=== PATIENT | female | born 1995 | race Caucasian/White ===

== ENCOUNTER 2019-06-15 14:27 | Outpatient (NON) | payer SELFPAY | END 2019-06-15 14:28 | PROVIDERS: Visit Provider Nurse Practitioner Family | DX: Z12.4 Encounter for screening for malignant neoplasm of cervix (principal); Z13.89 Encounter for screening for other disorder | CPT/HCPCS: 87491; 87591; 87661; 88141; 88175; G0145 ==

== ENCOUNTER 2019-07-20 08:14 | Emergency (ER) | payer SELFPAY ==
[2019-07-20 09:00] VITALS: BP 120/75; PULSE 80; RESP 20; TEMP 36.6; O2SAT 99
--- NOTE | 2019-07-20 09:10 | ED.SKABFB ---
HPI - Skin/Abscess/Foreign Bdy General Chief complaint: Skin/Abscess/Foreign Body Stated complaint: possible ringworm Source: patient History of Present Illness HPI narrative: patient presents with history of small round lesions with a central sparing located on her abdomen with no fever chills they are mildly itchy with no drainage no nausea vomiting no abdominal pain no audible wheezing. complaint: rash Onset (ago): week(s) Tetanus up to date: unsure Severity: mild Related Data Home Medications Medication Instructions Recorded Confirmed multivitamin,[id number] 1 tablet PO DAILY 06/15/19 Allergies Allergy/AdvReac Type Severity Reaction Status Date / Time tramadol Allergy Intermediate Hives, Verified 06/15/19 12:56 itching Laundry Soap Allergy Intermediate Unknown Uncoded 06/15/19 12:56 Review of Systems Review of Systems: All systems reviewed & are unremarkable except as noted in HPI and below PMFSH Past Medical History Medical History Abrasion of cervix GERD (gastroesophageal reflux disease) Obesity, Class I, BMI 30-34.9 Surgical History Surgical History History of appendectomy History of eye surgery Lazy eye repair-left eye Social History Social History Smoking status: Current every day smoker Tobacco type: e-cigarettes Alcohol intake: current Substance use: current Substance use type: marijuana Additional living arrangements comments: with family 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 Gender identity (if verbalized by the patient): Female Spiritual care concerns: No Exam Const: General: no acute distress and alert Orientation/consciousness: patient oriented x3 HENMT: Head: normal to inspection Eyes: Conjunctivae: conjunctivae normal Pupils: Equal, round and reactive pupils present Neck: Neck: normal visual inspection Chest: Chest palpation & inspection: normal inspection of the chest Resp: Effort & Inspection: normal respiratory effort Auscultation: clear to auscultation bilaterally Cardio: Rate: regular rate : General: Yes no CVA tenderness Back/Spine/Pelvis: Back: no CVA tenderness Skin: General skin exam: normal color Other: Small brown lesions with central sparing located on abdomen and back Extrem: General: normal to inspection Psych: Mental Status: mental status grossly normal Critical Care Time Critical Care Time Critical Care Time: No Discharge Plan Discharge Clinical Impression: Tinea corporis Patient Disposition: Home, Self-Care Condition: Stable Instructions: Antibiotic Form, Tinea Corporis (ED) Additional Instructions: apply Selsun Blue as directed leave on for 15 minutes and then wash off apply daily x1 week. Prescriptions: New Selsun Blue 1 % shampoo 1 applic TOPICAL DAILY 7 Days RF: 0 No Action Complete Multivitamin Tablet 1 tablet PO DAILY RF: 0 Follow-up/Referrals: Collette Kwong NP [Primary Care Provider] -
== END 2019-07-20 09:22 | disposition home or self-care (01) ==
PROVIDERS: Emergency Provider Emergency Medicine; PCP Nurse Practitioner Family
DX: B35.4 Tinea corporis (principal)
CPT/HCPCS: 99283

== ENCOUNTER 2020-03-24 00:49 | Emergency (ER) | payer OTHER, SELFPAY ==
[2020-03-24 01:00] VITALS: BP 123/72; PULSE 108; RESP 20; TEMP 36.9; O2SAT 97
--- NOTE | 2020-03-24 01:09 | ED.GENADULT ---
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 Denies N/V/D but states her LMP was in january. Related Data Allergies Allergy/AdvReac Type Severity Reaction Status Date / Time tramadol Allergy Intermediate Hives, Verified 06/15/19 12:56 itching Laundry Soap Allergy Intermediate Unknown Uncoded 06/15/19 12:56 Review of Systems Constitutional: Constitutional: Reports no additional constitutional complaints Eyes: Eyes: Reports no additional eye complaints ENT: Reports system reviewed and no additional complaints, except as documented Cardiovascular: Cardiovascular: Reports no additional cardiovascular complaints Respiratory: Respiratory: Reports no additional respiratory complaints Gastrointestinal: Gastrointestinal: Reports abdominal pain, Denies heartburn, Denies diarrhea, Denies nausea and Denies vomiting Genitourinary: Genitourinary: Reports no additional female genitourinary complaints Musculoskeletal: Musculoskeletal: Reports no additional musculoskeletal complaints Integumentary/Breasts: Skin/Breast: Reports system reviewed and no additional complaints, except as docu Neurologic: Reports system reviewed and no additional complaints, except as documented Psychiatric: Psychiatric: Reports no additional psychiatric complaints Endocrine: Endocrine: Reports no additional endocrine complaints Hematologic/Lymphatic: Hematologic/Lymphatic: Reports no additional hematologic/lymphatic complaints Allergic/Immunologic: Allergic/Immunologic: Reports no additional allergic/immunologic complaints [facility] Past Medical History Medical History (Updated 03/24/20 @ 02:27 by Ulises Jaime MD) Abrasion of cervix GERD (gastroesophageal reflux disease) Obesity, Class I, BMI 30-34.9 Surgical History Surgical History History of appendectomy History of eye surgery Lazy eye repair-left eye Social History Social History Smoking status: Current every day smoker Tobacco type: e-cigarettes/vaping Alcohol intake: current Substance use: current Substance use type: marijuana Additional living arrangements comments: with family 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 Gender identity (if verbalized by the patient): Female Spiritual care concerns: No Exam Const: General: healthy appearing, no acute distress and alert Orientation/consciousness: patient oriented x3 HENMT: Head: normal to inspection Eyes: Conjunctivae: conjunctivae normal Neck: Neck: normal visual inspection and no lymphadenopathy Chest: Chest palpation & inspection: normal inspection of the chest Resp: Effort & Inspection: normal respiratory effort Cardio: Rate: regular rate Rhythm: regular rhythm GI: Inspection: distended GI Palp: Yes Soft to palpation, No Tenderness to palpation present (GI), No Guarding due to palpation present (GI), No Rigid due to palpation, No Hernia present, No Palpable mass present and No Rebound tenderness present Percussion: Yes normal to percussion Auscultation: normal bowel sounds : General: Yes no CVA tenderness Back/Spine/Pelvis: Back: no CVA tenderness Skin: General skin exam: normal color Neuro: General: patient oriented x3, moves all extremities, no meningeal signs, no focal motor deficits and CN's II-XI intact bilaterally Cranial nerves: Yes Nystagmus not present Speech: normal speech Extrem: General: normal to inspection Psych: Mental Status: mental status grossly normal Course Course Emergency Course: W/U reviewd w/ patient and normal. [place] diet and d/c home on [facility]. Medical Decision Making Medical Records Medical records reviewed: Yes I reviewed the patient's medical records. Lab Data Lab results reviewed: Yes I reviewed the
[2020-03-24 01:22] LABS: Add Urine Microscopic? YES; Appearance Urine Clear (Clear); Bilirubin Urine Negative (Negative); Blood Urine Negative (Negative); Color Urine Yellow (Yellow); Glucose Urine UA Negative (Negative); Ketones Urine 1+ (Negative); Leukocyte Esterase Ur Negative LEU/UL (Negative); Nitrate Urine Negative (Negative); Protein Urine Negative (Negative); Specific Grav Ur 1.025 (1.010-1.020); Urobilinogen Urine 0.2 mg/dL (0.2-1.0)
[2020-03-24 01:24] LABS: Basophils Absolute Auto 0.04 K/mm3 (0.00-0.10); Basophils Percent Auto 0.5 % (0.0-1.0); Eosinophils Absolute Auto 0.05 K/mm3 (0.02-0.50); Eosinophils Percent Auto 0.6 % (1.0-6.0); Hematocrit 38.5 % (35.0-49.0); Hemoglobin 12.5 g/dL (12.0-15.0); Immature Granulocyte Absolute 0.04 K/mm3 (0.00-0.00); Immature Granulocyte Percent A 0.5 % (0.0-0.0); Lymphocytes Absolute Auto 2.86 K/mm3 (1.10-4.50); Mean Corpuscular HGB Conc 32.5 g/dL (32.0-36.0); Mean Corpuscular Hemoglobin 29.2 pg (27.0-31.0); Mean Platelet Volume 11.2 fl (9.2-11.8); Monocytes Absolute Auto 0.72 K/mm3 (0.10-0.90); Monocytes Percent Auto 8.6 % (2.0-11.0); Neutrophils Absolute Auto 4.7 K/mm3 (1.7-7.2); Neutrophils Percent Auto 55.8 % (50.0-70.0); Platelet Count Result 252 K/mm3 (150-420); Red Blood Count 4.28 M/mm3 (4.20-5.40); Red Cell Distribution Width 12.3 % (11.6-14.4); White Blood Count 8.4 K/mm3 (4.8-10.8)
[2020-03-24] MEDS: SODIUM CHLORIDE 0.9% IV 1,000 ML 999 ML IV CONT (01:26)
[2020-03-24 01:27] LABS: Pregnancy On Board Control Positive; Urine Pregnancy Test Negative
[2020-03-24 01:32] LABS: RBC Urine 0-2 /hpf (0-2); WBC Urine 0-3 /hpf (0-3)
[2020-03-24 01:33] LABS: Bacteria Urine 2+ /hpf; Squamous Epithelial Cell Urine Few /hpf (Few)
[2020-03-24 01:37] LABS: Alanine Aminotransferase 20 U/L (14-59); Albumin Level 3.9 g/dL (3.4-5.0); Alkaline Phosphatase 49 U/L (46-116); Anion Gap 13 mmol/L (8-16); Aspartate Amino Transferase 13 U/L (15-37); Bilirubin,Total 0.5 mg/dL (0.00-1.00); Blood Urea Nitrogen 14 mg/dL (7-18); Calcium 8.7 mg/dL (8.5-10.1); Carbon Dioxide 25 mmol/L (21-32); Chloride 103 mmol/L (98-108); Estimated CRCL calculation 97 ml/min; Estimated Glomerular Filt Rate > 60; Glucose 93 mg/dL (70-99); INR 1.2; Lipase 75 U/L (73-393); Osmolality Calculated 292 mOsm/kg (285-295); Potassium 3.3 mmol/L (3.5-5.1); Sodium 141 mmol/L (136-145); Total Protein 7.3 g/dL (6.4-8.2)
[2020-03-24 02:15] LABS: Beta HCG Quantitative < 1.00 mIU/mL (0-6)
[2020-03-24 02:25] VITALS: BP 111/60; PULSE 83; RESP 18; TEMP 36.6; O2SAT 98
== END 2020-03-24 02:32 | disposition home or self-care (01) ==
PROVIDERS: Emergency Provider Family Medicine; PCP Nurse Practitioner Family
DX: K52.9 Noninfective gastroenteritis and colitis, unspecified (principal)
CPT/HCPCS: 36415; 80053; 81001; 81025; 83690; 84702; 85025; 85610; 85730; 96360; 99283; J7030

== ENCOUNTER 2020-07-28 12:41 | Outpatient (CLI) | payer OTHER, SELFPAY ==
[2020-07-28 15:06] LABS: SARS-CoV-2 Ag Negative (Negative)
== END 2020-07-28 12:42 | disposition home or self-care (01) ==
LOC: CHSLAB 12:45
PROVIDERS: PCP Nurse Practitioner Family; Visit Provider Nurse Practitioner Family
DX: R09.81 Nasal congestion (principal); Z20.822 Contact with and (suspected) exposure to COVID-19
CPT/HCPCS: 87426; C9803

== ENCOUNTER 2020-08-12 11:07 | Outpatient (CLI) | payer OTHER, SELFPAY ==
[2020-08-12 11:38] LABS: SARS-CoV-2 Ag Negative (Negative)
== END 2020-08-12 11:08 | disposition home or self-care (01) ==
LOC: CHSLAB 11:10
PROVIDERS: PCP Nurse Practitioner Family; Visit Provider Nurse Practitioner Family
DX: Z20.822 Contact with and (suspected) exposure to COVID-19 (principal)
CPT/HCPCS: 87426; C9803

== ENCOUNTER 2021-07-14 09:42 | Outpatient (CLI) | payer OTHER, SELFPAY ==
--- NOTE | ~2021-07-14 | US_ITS ---
EXAMINATION: US OB <= 14 weeks fetus DATE: 07/14/2021 10:27 INDICATION: First trimester dating TECHNIQUE: Real-time pelvic transabdominal and transvaginal ultrasound was performed. COMPARISON: None. FINDINGS: The uterus measures 10.5 x 8.0 x 8.5 cm. There is an intrauterine gestational sac. A yolk sac is identified. heart motion is identified measuring 137 beats per minute (bpm) by M-mode Do ppler. The crown rump length measures 10 mm , which correlates with an estimated gestational ag e of 6 weeks and 6 day(s) (+/-) 3 day(s). The right ovary measures 2.6 x 1.3 x 1.1 cm. The left ovary measures 2.7 x 1.7 x 1.7 cm. There is nor mal vascular flow in the ovaries. There is no free fluid in the pelvis. IMPRESSION: 1. Live intrauterine with an estimated gestational age of 6 weeks and 6 day(s) (+/-) 3 day( s) and an estimated delivery date of 03/03/2022. Reviewed, dictated and finalized at location A. ESS COACH IMPRESSION: 1. Live intrauterine with an estimated gestational age of 6 weeks and 6 day(s) (+/-) 3 day(s) and an estimated delivery date of 03/03/2022.
== END 2021-07-14 09:43 | disposition home or self-care (01) ==
LOC: CHSIMG 09:44
PROVIDERS: PCP Nurse Practitioner Family; Visit Provider Nurse Practitioner Family
DX: N83.209 Unspecified ovarian cyst, unspecified side (principal); N91.2 Amenorrhea, unspecified
CPT/HCPCS: 36415; 76801; 84702

== ENCOUNTER 2021-07-17 14:36 | Outpatient (CLI) | payer OTHER, SELFPAY ==
[2021-07-17 16:00] LABS: SARS-CoV-2 RNA PCR Negative (Negative)
== END 2021-07-17 14:37 | disposition home or self-care (01) ==
PROVIDERS: PCP Nurse Practitioner Family; Visit Provider Nurse Practitioner Family
DX: R11.0 Nausea (principal); Z20.822 Contact with and (suspected) exposure to COVID-19
CPT/HCPCS: C9803; U0003; U0005

== ENCOUNTER 2021-08-20 14:07 | Emergency (ER) | payer OTHER, SELFPAY ==
[2021-08-20 14:48] VITALS: BP 113/59; PULSE 55; RESP 20; TEMP 37.1; O2SAT 99
[2021-08-20 15:02] LABS: Basophils Absolute Auto 0.02 K/mm3 (0.00-0.10); Basophils Percent Auto 0.3 % (0.0-1.0); Eosinophils Absolute Auto 0.04 K/mm3 (0.02-0.50); Eosinophils Percent Auto 0.6 % (1.0-6.0); Hematocrit 41.1 % (35.0-49.0); Hemoglobin 13.4 g/dL (12.0-15.0); Immature Granulocyte Absolute 0.05 K/mm3 (0.00-0.00); Immature Granulocyte Percent A 0.7 % (0.0-0.0); Lymphocytes Absolute Auto 1.45 K/mm3 (1.10-4.50); Lymphocytes Percent Auto 20.7 % (18.0-42.0); Mean Corpuscular HGB Conc 32.6 g/dL (32.0-36.0); Mean Corpuscular Hemoglobin 29.4 pg (27.0-31.0); Mean Corpuscular Volume 90.1 fL (78.0-102.0); Monocytes Absolute Auto 0.48 K/mm3 (0.10-0.90); Monocytes Percent Auto 6.9 % (2.0-11.0); Neutrophils Percent Auto 70.8 % (50.0-70.0); Platelet Count Result 219 K/mm3 (150-420); Red Blood Count 4.56 M/mm3 (4.20-5.40); Red Cell Distribution Width 12.5 % (11.6-14.4)
[2021-08-20] MEDS: SODIUM CHLORIDE 0.9% IV 1,000 ML 999 ML IV CONT (15:06)
[2021-08-20] MEDS: ONDANSETRON INJ 4 MG/2 ML VIAL IV PUSH (15:10)
[2021-08-20] MEDS: PANTOPRAZOLE SODIUM IV 40 MG VIAL IV PUSH (15:11)
[2021-08-20 15:19] LABS: Alanine Aminotransferase 35 U/L (14-59); Albumin Level 3.4 g/dL (3.4-5.0); Alkaline Phosphatase 40 U/L (46-116); Anion Gap 9 mmol/L (8-16); Aspartate Amino Transferase 24 U/L (15-37); Bilirubin,Total 0.3 mg/dL (0.00-1.00); Blood Urea Nitrogen 10 mg/dL (7-18); Calcium 8.7 mg/dL (8.5-10.1); Carbon Dioxide 25 mmol/L (21-32); Chloride 101 mmol/L (98-108); Estimated CRCL calculation 133 ml/min; Estimated Glomerular Filt Rate > 60; Glucose 81 mg/dL (70-99); Lipase 54 U/L (73-393); Osmolality Calculated 278 mOsm/kg (285-295); Potassium 3.7 mmol/L (3.5-5.1); Sodium 135 mmol/L (136-145); Total Protein 7.2 g/dL (6.4-8.2)
--- NOTE | 2021-08-20 15:56 | ED.NAVMDI ---
HPI - Nausea/Vomiting/Diarrhea General Chief complaint: Nausea/Vomiting/Diarrhea Stated complaint: Stomache Bug/ Vomiting/Diarrhea Time Seen by Provider: 08/20/21 14:09 Source: patient and RN notes reviewed Mode of arrival: ambulatory Limitations: no limitations History of Present Illness MD elicited complaint: nausea and vomiting Pertinent past history: other (Pt is .) Onset (ago): day(s) (1) Description of vomiting: watery Associated nausea: Yes Associated abdominal pain: No Location of pain: none Severity: mild Pain scale (0-10): 0 Exacerbating factors: none Relieving factors: none Associated symptoms: nausea/vomiting Treatment prior to arrival: none Related Data Home Medications Medication Instructions Recorded Confirmed vitamins-iron fumarate 65 1 tablet PO DAILY 07/27/21 08/20/21 mg iron-folic acid 1 mg tablet Allergies Allergy/AdvReac Type Severity Reaction Status Date / Time tramadol Allergy Intermediate Hives, Verified 09/02/21 14:37 itching Laundry Soap Allergy Intermediate Unknown Uncoded 09/02/21 14:37 Review of Systems Review of Systems: All systems reviewed & are unremarkable except as noted in HPI and below PMFSH Past Medical History Medical History Abrasion of cervix Encounter for screening examination for sexually transmitted disease Gastroenteritis GERD (gastroesophageal reflux disease) Obesity, Class I, BMI 30-34.9 Suppression of menstruation Surgical History Surgical History History of appendectomy History of eye surgery Lazy eye repair-left eye Social History Social History Smoking status: Current every day smoker Tobacco type: e-cigarettes/vaping Alcohol intake: former Alcohol use details: social Substance use: current Substance use type: marijuana Other substance usage details: a pinch here and there Additional living arrangements comments: with family 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 Gender identity (if verbalized by the patient): Female Sexual Orientation (if Verbalized by the Patient): Straight or Heterosexual Spiritual care concerns: No Exam Const: General: no acute distress and alert Nutritional Appearance: well nourished Orientation/consciousness: patient oriented x3 Limitations: no limitations HENMT: Head: normal to inspection Ears: external ears normal, TM's normal bilaterally and EAC's normal General nose exam: Normal external nose present and Normal nares present Face and sinus: sinuses nontender Mouth: Yes moist mucous membranes Throat: posterior oropharynx normal Eyes: Conjunctivae: conjunctivae normal Cornea: corneas normal Pupils: Equal, round and reactive pupils present EOM: EOMs intact bilaterally Neck: Neck: normal visual inspection and no lymphadenopathy Chest: Chest palpation & inspection: normal inspection of the chest Resp: Effort & Inspection: normal respiratory effort Auscultation: clear to auscultation bilaterally Cardio: Rate: regular rate Rhythm: regular rhythm GI: GI Palp: Yes Soft to palpation and No Tenderness to palpation present (GI) Auscultation: normal bowel sounds : General: Yes bladder normal to palpation and Yes no CVA tenderness Back/Spine/Pelvis: Back: no CVA tenderness Skin: General skin exam: normal color Neuro: General: patient oriented x3, moves all extremities, no meningeal signs, no focal motor deficits and CN's II-XI intact bilaterally Extrem: General: normal to inspection and no pedal edema Psych: Appearance: grossly normal and well kempt Mental Status: mental status grossly normal Affect: normal affect Attitude: cooperative Thought content: Yes Normal thought content present Course Course Emergency Course: Pt was stable in the ED. no acute GI loss. Ree
[2021-08-20 16:16] LABS: Add Urine Microscopic? YES; Appearance Urine Clear (Clear); Bilirubin Urine Negative (Negative); Blood Urine Negative (Negative); Color Urine Yellow (Yellow); Glucose Urine UA Negative (Negative); Ketones Urine 3+ (Negative); Leukocyte Esterase Ur Trace LEU/UL (Negative); Nitrate Urine Negative (Negative); Protein Urine Negative (Negative); Specific Grav Ur 1.025 (1.010-1.020); Urobilinogen Urine 0.2 mg/dL (0.2-1.0)
[2021-08-20 16:23] LABS: Bacteria Urine 1+ /hpf; Mucus Urine Few /lpf; RBC Urine None seen /hpf (0-2); Squamous Epithelial Cell Urine Few /hpf (Few); WBC Urine 0-3 /hpf (0-3)
[2021-08-20 16:57] VITALS: BP 113/83; PULSE 61; RESP 20; TEMP 36.8; O2SAT 100
== END 2021-08-20 16:45 | disposition home or self-care (01) ==
PROVIDERS: Emergency Provider Emergency Medicine; PCP Nurse Practitioner Family
DX: K52.9 Noninfective gastroenteritis and colitis, unspecified (principal); Z34.92 Encounter for supervision of normal pregnancy, unspecified, second trimester
CPT/HCPCS: 36415; 80053; 81001; 83690; 85025; 96361; 96374; 96375; 99284; C9113; J2405; J7030

== ENCOUNTER 2021-09-02 11:40 | Outpatient (CLI) | payer OTHER, SELFPAY ==
[2021-09-02 13:06] LABS: Basophils Percent Auto 0.5 % (0.2-1.2); Eosinophils Percent Auto 0.6 % (0-4.4); Hematocrit 36.3 % (37.0-47.0); Hemoglobin 11.9 g/dL (12.0-15.0); Immature Granulocyte Absolute 0.02 K/mm3 (0.00-0.031); Immature Granulocyte Percent A 0.3 % (0-0.5); Lymphocytes Absolute Auto 1.46 K/mm3 (0.9-3.2); Lymphocytes Percent Auto 22.6 % (18.3-44.2); Mean Corpuscular HGB Conc 32.8 g/dl (32-36); Mean Corpuscular Hemoglobin 29.7 pg (26-34); Mean Corpuscular Volume 90.5 fl (80-100); Mean Platelet Volume 11.4 fl (7.4-10.4); Monocytes Absolute Auto 0.5 K/mm3 (0.1-0.6); Monocytes Percent Auto 7.3 % (2.6-8.5); Neutrophils Absolute Auto 4.5 K/mm3 (1.3-6.7); Neutrophils Percent Auto 68.7 % (45.5-73.1); Platelet Count Result 198 k/mm3 (150-375); Red Blood Count 4.01 M/mm3 (4.2-5.4); Red Cell Distribution Width 12.7 % (11.5-14.5); White Blood Count 6.5 K/mm3 (4.5-10.0)
[2021-09-02 13:14] LABS: Glucose 1 Hour PP 50gm Dose 119 mg/dL
[2021-09-02 13:53] LABS: Hepatitis B Surface Antigen Negative (Negative); Rubella IgG Antibody 7.8 IU/ML
[2021-09-02 13:56] LABS: HIV 1/2 Ab P24 Ag Result Negative (Negative)
[2021-09-03 09:35] LABS: Rapid Plasma Reagin Non-Reactive (NonReactive)
== END 2021-09-02 11:41 | disposition home or self-care (01) ==
LOC: ANHLAB 11:42
PROVIDERS: PCP Nurse Practitioner Family; Visit Provider Obstetrics & Gynecology
DX: N94.89 Other specified conditions associated with female genital organs and menstrual cycle (principal)
CPT/HCPCS: 36415; 82947; 84702; 85025; 86592; 86644; 86703; 86747; 86762; 86787; 86850; 86900; 86901; 87086; 87088; 87340; G0432

== ENCOUNTER 2021-10-02 10:19 | Outpatient (CLI) | payer OTHER, SELFPAY ==
--- NOTE | ~2021-10-02 | US_ITS ---
EXAMINATION: US OB /maternal detail DATE: 10/02/2021 11:10 INDICATION: Second trimester anatomic survey TECHNIQUE: Real-time ultrasound of the pelvis was performed. COMPARISON: 07/14/2021 FINDINGS: There is a single living fetus in transverse lie. The placenta is anterior and 4.5 cm from the internet specialist al cervical os. heart rate is 139 beats per minute (bpm). cardiac activity and mov ement are noted. The amniotic fluid index is subjectively normal. The following anatomy was identified as normal: 4 chamber heart 3 vessel cord cord insertion kidneys urinary bladder stomach spine diaphragm ventricles cisterna magna cerebellum The following biometric data were obtained: Biparietal diameter (BPD): 4.0 cm; head circumference (HC): 15.8 cm; abdominal circumference (AC): 13 .5 cm; femur length (FL): 2.8 cm. These measurements are concordant. Estimated weight is 255 g +/- 38 g, which correlates with the 48th percentile when 02/28/2022 i s used as estimated date of delivery. As single measurements, these parameters are each equal to the following estimated gestational ages w ith ranges of +/- 2 standard deviations: BPD: 18 weeks 2 days +/- 1 weeks 5 days. HC: 18 weeks 5 days +/- 1 weeks 3 days. AC: 19 weeks 0 days +/- 2 weeks 0 days. FL: 18 weeks 4 days +/- 1 weeks 6 days. estimated gestational age based solely on measurements from this exam is 18 weeks 5 days +/- 1 weeks 2 days. IMPRESSION: 1. Single living fetus in transverse lie. 2. Estimated weight is 255 g +/- 38 g, which correlates with the 48th percentile when 2 is used as estimated date of delivery. Reviewed, dictated and finalized at location A. IMPRESSION: 1. Single living fetus in transverse lie. 2. Estimated weight is 255 g +/- 38 g, which correlates with the 48th per centile when 02/28/2022 is used as estimated date of delivery.
== END 2021-10-02 10:20 | disposition home or self-care (01) ==
LOC: CHSIMG 10:21
PROVIDERS: PCP Nurse Practitioner Family; Visit Provider Obstetrics & Gynecology
DX: Z34.92 Encounter for supervision of normal pregnancy, unspecified, second trimester (principal)
CPT/HCPCS: 76805

== ENCOUNTER 2021-11-07 20:35 | Emergency (ER) | payer OTHER, SELFPAY ==
--- NOTE | 2021-11-07 20:58 | ED.SYNCOPE ---
HPI - Syncope General Chief Complaint: Fall Stated Complaint: blacked out, hit back of head Time Seen by Provider: 11/07/21 20:59 History of Present Illness HPI narrative: 26-year-old female patient 2 para 1 22-23 weeks along in her is in the ER with complaints of having had a near syncopal episode while outdoors attending a carnival today. Patient states that she was out in the heat and had not had much to drink. She was standing in front of a stand and felt lightheaded and had a blackout spell. The patient states that she did fall to the ground and landed on the grass hitting the back of her head. Patient states that that woke her up. Patient states that she was out for less than 5 minutes. EMS was at the scene and did encourage her to drink water and checked her out and the time. The incident apparently took place around 7:00 p.m.. Since then she has had water to drink and food to eat.. There was no associated nausea or vomiting. She denies any associated headache. She denies any chest pain. Patient states that she did not drink enough fluids today. Her thus far has been uneventful with the exception of hyperemesis but lately she has not needed any Zofran. She is currently on vitamins. Related Data Home Medications Medication Instructions Recorded Confirmed vitamins-iron fumarate 65 1 tablet PO DAILY 07/27/21 11/07/21 mg iron-folic acid 1 mg tablet Allergies Allergy/AdvReac Type Severity Reaction Status Date / Time tramadol Allergy Intermediate Hives, Verified 11/07/21 20:57 itching Laundry Soap Allergy Intermediate Unknown Uncoded 10/26/21 07:53 Review of Systems Review of Systems: All systems reviewed & are unremarkable except as noted in HPI and below Constitutional: Constitutional: Reports no additional constitutional complaints Eyes: Eyes: Reports no additional eye complaints ENT: Reports system reviewed and no additional complaints, except as documented Cardiovascular: Cardiovascular: Reports no additional cardiovascular complaints Respiratory: Respiratory: Reports no additional respiratory complaints Gastrointestinal: Gastrointestinal: Reports no additional gastrointestinal complaints Genitourinary: Genitourinary: Reports no additional female genitourinary complaints Musculoskeletal: Musculoskeletal: Reports no additional musculoskeletal complaints Integumentary/Breasts: Skin/Breast: Reports system reviewed and no additional complaints, except as docu Neurologic: Reports system reviewed and no additional complaints, except as documented Psychiatric: Psychiatric: Reports no additional psychiatric complaints Endocrine: Endocrine: Reports no additional endocrine complaints Hematologic/Lymphatic: Hematologic/Lymphatic: Reports no additional hematologic/lymphatic complaints Allergic/Immunologic: Allergic/Immunologic: Reports no additional allergic/immunologic complaints PMFSH Past Medical History Medical History Abrasion of cervix Amenorrhea Amenorrhea Encounter for pre-employment examination Encounter for screening examination for sexually transmitted disease Exposure to COVID-19 virus Gastroenteritis GERD (gastroesophageal reflux disease) Obesity, Class I, BMI 30-34.9 Ovarian cyst Skin irritation Skin rash Suppression of menstruation Vomiting and diarrhea Surgical History Surgical History History of appendectomy History of eye surgery Lazy eye repair-left eye Social History Social History Smoking status: Current every day smoker Tobacco type: e-cigarettes/vaping Alcohol intake: former Alcohol use details: social Substance use: current Substance use type: marijuana Other substance usage details: a pinch here and there Additional living arrangements comments: [facility]
--- NOTE | 2021-11-07 21:12 | ECG_ITS ---
Measurements Intervals [place] Rate: 92 P: 50 IL: 170 QRS: 10 QRSD: 95 T: 46 QT: 351 QTc: 434 Interpretive Statements SINUS RHYTHM WITHIN NORMAL LIMITS NO PREVIOUS ECG AVAILABLE FOR COMPARISON Electronically Signed On 11-08-2021 7:22:56 CDT by Roverto Bonner M.D.
[2021-11-07 21:46] VITALS: BP 118/67; PULSE 87; RESP 16; O2SAT 99
[2021-11-07 21:47] VITALS: BP 114/71; PULSE 98; RESP 17; TEMP 37; O2SAT 98
[2021-11-07 22:23] VITALS: BP 144/74; PULSE 102; RESP 19; O2SAT 97
[2021-11-07 22:24] LABS: Basophils Absolute Auto 0.04 K/mm3 (0.00-0.10); Basophils Percent Auto 0.3 % (0.0-1.0); Eosinophils Absolute Auto 0.02 K/mm3 (0.02-0.50); Eosinophils Percent Auto 0.2 % (1.0-6.0); Hematocrit 34.7 % (35.0-49.0); Hemoglobin 11.6 g/dL (12.0-15.0); Immature Granulocyte Percent A 1.7 % (0.0-0.0); Lymphocytes Absolute Auto 1.68 K/mm3 (1.10-4.50); Lymphocytes Percent Auto 13.9 % (18.0-42.0); Mean Corpuscular HGB Conc 33.4 g/dL (32.0-36.0); Mean Corpuscular Hemoglobin 30.9 pg (27.0-31.0); Mean Corpuscular Volume 92.5 fL (78.0-102.0); Mean Platelet Volume 11.1 fl (9.2-11.8); Monocytes Absolute Auto 0.84 K/mm3 (0.10-0.90); Monocytes Percent Auto 6.9 % (2.0-11.0); Neutrophils Absolute Auto 9.3 K/mm3 (1.7-7.2); Platelet Count Result 192 K/mm3 (150-420); Red Blood Count 3.75 M/mm3 (4.20-5.40); White Blood Count 12.1 K/mm3 (4.8-10.8)
[2021-11-07 22:25] LABS: Add Urine Microscopic? NO; Appearance Urine Clear (Clear); Bilirubin Urine Negative (Negative); Blood Urine Negative (Negative); Color Urine Yellow (Yellow); Glucose Urine UA Negative (Negative); Ketones Urine Negative (Negative); Leukocyte Esterase Ur Negative (Negative); Nitrate Urine Negative (Negative); Protein Urine Negative (Negative); Specific Grav Ur 1.015 (1.010-1.020); Urobilinogen Urine 0.2 mg/dL (0.2-1.0)
[2021-11-07 22:31] VITALS: BP 109/69; PULSE 100; RESP 18; O2SAT 99
--- NOTE | 2021-11-07 22:33 | PC.NURSE ---
Addendum entered by Santy Lew RN 11/07/21 22:34: HIV testing form for mother completed and placed in pt chart Original Note: HIV testing form completed and placed in pt chart
[2021-11-07 22:52] VITALS: BP 124/97; PULSE 86; RESP 17; TEMP 36.5; O2SAT 99
[2021-11-07 23:11] LABS: Alanine Aminotransferase 22 U/L (14-59); Albumin Level 2.6 g/dL (3.4-5.0); Alkaline Phosphatase 59 U/L (46-116); Anion Gap 6 mmol/L (8-16); Aspartate Amino Transferase 19 U/L (15-37); Bilirubin,Total 0.2 mg/dL (0.00-1.00); Blood Urea Nitrogen 8 mg/dL (7-18); Calcium 9.3 mg/dL (8.5-10.1); Carbon Dioxide 26 mmol/L (21-32); Chloride 102 mmol/L (98-108); Estimated CRCL calculation 140 ml/min; Estimated Glomerular Filt Rate > 60; Glucose 77 mg/dL (70-99); Magnesium 1.8 mg/dL (1.8-2.4); Osmolality Calculated 275 mOsm/kg (285-295); Potassium 3.7 mmol/L (3.5-5.1); Sodium 134 mmol/L (136-145); Total Protein 6.7 g/dL (6.4-8.2)
[2021-11-07 23:12] LABS: Troponin I < 4.0 ng/L (0.00-60.4)
== END 2021-11-07 22:55 | disposition home or self-care (01) ==
PROVIDERS: Emergency Provider Emergency Medicine; PCP Nurse Practitioner Family
DX: R42 Dizziness and giddiness (principal); Z33.1 Pregnant state, incidental
CPT/HCPCS: 36415; 80053; 81003; 83735; 84484; 85025; 93005; 99284

== ENCOUNTER 2021-12-07 11:09 | Outpatient (CLI) | payer OTHER, SELFPAY ==
[2021-12-07 12:30] LABS: Basophils Absolute Auto 0.07 K/mm3 (0.00-0.10); Basophils Percent Auto 0.6 % (0.0-1.0); Eosinophils Absolute Auto 0.03 K/mm3 (0.02-0.50); Eosinophils Percent Auto 0.3 % (1.0-6.0); Hematocrit 34.7 % (35.0-49.0); Hemoglobin 11.5 g/dL (12.0-15.0); Immature Granulocyte Absolute 0.24 K/mm3 (0.00-0.00); Immature Granulocyte Percent A 2.1 % (0.0-0.0); Lymphocytes Absolute Auto 1.86 K/mm3 (1.10-4.50); Lymphocytes Percent Auto 16.3 % (18.0-42.0); Mean Corpuscular HGB Conc 33.1 g/dL (32.0-36.0); Mean Corpuscular Hemoglobin 30.7 pg (27.0-31.0); Mean Corpuscular Volume 92.8 fL (78.0-102.0); Mean Platelet Volume 11.8 fl (9.2-11.8); Monocytes Absolute Auto 0.69 K/mm3 (0.10-0.90); Neutrophils Absolute Auto 8.5 K/mm3 (1.7-7.2); Neutrophils Percent Auto 74.7 % (50.0-70.0); Platelet Count Result 197 K/mm3 (150-420); Red Blood Count 3.74 M/mm3 (4.20-5.40); Red Cell Distribution Width 12.3 % (11.6-14.4); White Blood Count 11.4 K/mm3 (4.8-10.8)
[2021-12-07 13:04] LABS: Glucose 1 Hour PP 50gm Dose 114 mg/dL (70-130)
[2021-12-07 13:36] LABS: HIV 1 P24 AG Negative (Negative); HIV 1/2 AB Negative (Negative)
== END 2021-12-07 11:10 | disposition home or self-care (01) ==
LOC: CHSLAB 11:11
PROVIDERS: PCP Nurse Practitioner Family; Visit Provider Obstetrics & Gynecology
DX: Z34.92 Encounter for supervision of normal pregnancy, unspecified, second trimester (principal)
CPT/HCPCS: 36415; 82947; 85025; 86703

== ENCOUNTER 2022-01-30 20:35 | Emergency (ER) | payer OTHER, SELFPAY ==
--- NOTE | 2022-01-30 20:43 | ED.FALL ---
HPI - Fall General Chief Complaint: Fall Stated Complaint: 36 wks and fell today Time Seen by Provider: 01/30/22 20:40 Source: patient Mode of arrival: ambulatory History of Present Illness HPI Narrative: 26-year-old female, 38 fell at work. She slipped on a greasy substance and fell on her left knee and subsequently on her buttock. No loss of consciousness. No abrasions /lacerations noted. No head injury. No neck or back pain. Subsequently the patient was able to walk and bear weight without any difficulty. No vaginal discharge. The patient denied any pain. MD complaint: fall Onset (ago): hour(s) ( 1-1/2 hour ago) Fall from: standing Fall witnessed: yes, by bystander Place fall occurred: work Loss of consciousness: none Prolonged down time: no Symptoms prior to fall: none Context: tripped/slipped Location of injury - extremities: Left: knee Related Data Home Medications Medication Instructions Recorded Confirmed vitamins-iron fumarate 65 1 tablet PO DAILY 07/27/21 01/20/22 mg iron-folic acid 1 mg tablet Allergies Allergy/AdvReac Type Severity Reaction Status Date / Time tramadol Allergy Intermediate Hives, Verified 01/20/22 14:25 itching Laundry Soap Allergy Intermediate Unknown Uncoded 01/20/22 14:25 Review of Systems Review of Systems: All systems reviewed & are unremarkable except as noted in HPI and below Constitutional: Constitutional: Reports as per HPI and Reports no additional constitutional complaints Eyes: Eyes: Reports as per HPI and Reports no additional eye complaints ENT: Reports system reviewed and no additional complaints, except as documented and Reports as per HPI Cardiovascular: Cardiovascular: Reports as per HPI and Reports no additional cardiovascular complaints Respiratory: Respiratory: Reports as per HPI and Reports no additional respiratory complaints Gastrointestinal: Gastrointestinal: Reports as per HPI and Reports no additional gastrointestinal complaints Genitourinary: Genitourinary: Reports no additional female genitourinary complaints Comments: Gravid uterus at the xiphoid Musculoskeletal: Musculoskeletal: Reports no additional musculoskeletal complaints and Reports as per HPI Integumentary/Breasts: Skin/Breast: Reports system reviewed and no additional complaints, except as docu and Reports as per HPI Neurologic: Reports system reviewed and no additional complaints, except as documented and Reports as per HPI Psychiatric: Psychiatric: Reports no additional psychiatric complaints and Reports as per HPI Endocrine: Endocrine: Reports no additional endocrine complaints and Reports as per HPI Hematologic/Lymphatic: Hematologic/Lymphatic: Reports no additional hematologic/lymphatic complaints and Reports as per HPI Allergic/Immunologic: Allergic/Immunologic: Reports no additional allergic/immunologic complaints and Reports as per HPI PMF Past Medical History Medical History Abrasion of cervix Amenorrhea Amenorrhea Encounter for pre-employment examination Encounter for screening examination for sexually transmitted disease Exposure to COVID-19 virus Gastroenteritis GERD (gastroesophageal reflux disease) Obesity, Class I, BMI 30-34.9 Ovarian cyst Skin irritation Skin rash Suppression of menstruation Vomiting and diarrhea Surgical History Surgical History History of appendectomy History of eye surgery Lazy eye repair-left eye Social History Social History Smoking status: Current every day smoker Tobacco type: e-cigarettes/vaping Alcohol intake: former Alcohol use details: social Substance use: current Substance use type: marijuana Other substance usage details: a pinch here and there Additional living arrangements comments: with famil
[2022-01-30 20:49] VITALS: BP 123/78; PULSE 88; RESP 16; TEMP 36.4; O2SAT 98
[2022-01-30 21:10] VITALS: BP 129/80; PULSE 78; RESP 20; TEMP 37.2; O2SAT 100
== END 2022-01-30 21:17 | disposition home or self-care (01) ==
PROVIDERS: Emergency Provider Internal Medicine Critical Care Medicine; PCP Nurse Practitioner Family
DX: O9A.213 Injury, poisoning and certain other consequences of external causes complicating pregnancy, third trimester (principal); S89.92XA Unspecified injury of left lower leg, initial encounter; W19.XXXA Unspecified fall, initial encounter; Z3A.36 36 weeks gestation of pregnancy
CPT/HCPCS: 99281

== ENCOUNTER 2022-02-11 18:42 | Observation (INO) | payer OTHER, SELFPAY ==
[2022-02-11 19:05] VITALS: TEMP 36.9
[2022-02-11 20:43] VITALS: BMI 36.6
--- NOTE | 2022-02-11 20:43 | OBADM ---
This patient, Mary Sosa, admitted to the OB room Labor/Delivery/Recovery 107 for observation. Patient/family oriented to hospital policies and general routines including ID bracelet, bed and alarms, visiting hours, pain management, procedures, bathroom and other care routines, personal items, smoking policy, room service/diet, and visiting hours. Patient/Family are encouraged to report perceived risks to care and to ask questions if they do not understand what they are told or what they should do.
--- NOTE | 2022-02-16 09:54 | PM.OBTRLD ---
OB - Triage/Final Diagnosis Visit Information Reason for evaluation: threatened labor Comments/Additional reasons for admission: I have assessed the risk for this patient, Mary Sosa, and determined that she would benefit from observation care.
== END 2022-02-11 20:40 | disposition home or self-care (01) ==
PROVIDERS: Admitting Provider Obstetrics & Gynecology; PCP Nurse Practitioner Family; Visit Provider Obstetrics & Gynecology
DX: O47.1 False labor at or after 37 completed weeks of gestation (principal); Z3A.37 37 weeks gestation of pregnancy
CPT/HCPCS: G0378; G0379

== ENCOUNTER 2022-02-19 08:44 | Outpatient (CLI) | payer OTHER, SELFPAY ==
[2022-02-19 09:25] VITALS: BP 119/85; PULSE 100
== END 2022-02-19 09:30 | disposition home or self-care (01) ==
LOC: ANHOBOP 09:26 → ANHLDR 09:29
PROVIDERS: PCP Nurse Practitioner Family; Visit Provider Obstetrics & Gynecology
DX: O42.90 Premature rupture of membranes, unspecified as to length of time between rupture and onset of labor, unspecified weeks of gestation (principal); Z3A.00 Weeks of gestation of pregnancy not specified
CPT/HCPCS: 59025; 84112; 99199

== ENCOUNTER 2022-02-24 03:22 | Inpatient (IN) | payer OTHER, SELFPAY ==
[2022-02-24] VITALS (14 sets, daily range): BP systolic 88–142; BP diastolic 66–92; PULSE 68–256; RESP 16–18; TEMP 36.4–36.9; O2SAT 98–100; BMI 37.9
[2022-02-24] MEDS: fentaNYL CITRATE INJ (*CRX) 100 MCG/2 ML VIAL 50 MCG IV PUSH (03:47)
[2022-02-24] MEDS: OXYTOCIN 30 UNITS/NS 500 ML 30 UNITS/500 ML BAG 999 UNITS IV CONT (03:50)
[2022-02-24] MEDS: LIDOCAINE HCL 1% PF 30 ML VIAL (03:50)
[2022-02-24 04:01] LABS: Basophils Absolute Auto 0.1 K/mm3 (0.0-0.1); Basophils Percent Auto 0.4 % (0.2-1.2); Eosinophils Percent Auto 0.3 % (0-4.4); Hematocrit 36.4 % (37.0-47.0); Hemoglobin 11.6 g/dL (12.0-15.0); Immature Granulocyte Absolute 0.12 K/mm3 (0.00-0.031); Immature Granulocyte Percent A 0.8 % (0-0.5); Lymphocytes Absolute Auto 2.86 K/mm3 (0.9-3.2); Lymphocytes Percent Auto 19.2 % (18.3-44.2); Mean Corpuscular HGB Conc 31.9 g/dl (32-36); Mean Corpuscular Hemoglobin 28.3 pg (26-34); Mean Corpuscular Volume 88.8 fl (80-100); Mean Platelet Volume 12.2 fl (7.4-10.4); Monocytes Absolute Auto 1.1 K/mm3 (0.1-0.6); Monocytes Percent Auto 7.2 % (2.6-8.5); Neutrophils Absolute Auto 10.8 K/mm3 (1.3-6.7); Neutrophils Percent Auto 72.1 % (45.5-73.1); Platelet Count Result 258 k/mm3 (150-375); Red Cell Distribution Width 14.8 % (11.5-14.5); White Blood Count 14.9 K/mm3 (4.5-10.0)
--- NOTE | 2022-02-24 04:19 | P.PCNOB_ITS ---
OB - Delivery Note Procedure Delivery date: 02/24/22 Induction method: None Delivery monitor: External FHT and External Uterine Route of delivery: Episiotomy description: None Laceration Description: Perineal - 2nd Degree Delivery repair: chromic Specimen: No Quantitative Blood Loss (ml): 350 Anesthesia type: Local Disposition: Floor Complications: none Narrative: patient was prepped and draped. Maternal expulsive efforts delivered vertex in the rest of baby followed withoutDifficulty. Cord clamped and cut and placenta delivered spontaneously. Cervix vagina perineum were inspected with second-degree laceration noted. This was injected with lidocaine and then closed using 2-0 chromic to approximate the vaginal tissue the deep tissue was closed in the subcuticular layer to approximate the perineum. Uterus was well contracted there was minimal bleeding at this point the procedure was terminated with immediate postoperative condition of mother and baby both excellent. [place] Baby Weeks of gestation at delivery: 39 Infant gender: Female Weight (pounds): 8 Weight (ounces): 4 presentation: vertex Placenta delivery description: Spontaneous Cord Vessel Description: 3 Vessels score one minute: 9 score five minutes: 9 AMG Delivery Billing Delivery Delivery: Delivery Charge
--- NOTE | 2022-02-24 04:19 | WPDHPUPDATE1 ---
History and Physical Update Update Date/Time: 02/24/22 04:19 History and Physical has been reviewed, including an updated exam of the patient. There are NO changes in the patient's condition. Risks, benefits, and alternatives have been discussed and questions answered. Patient agrees to proceed with procedure.
--- NOTE | 2022-02-24 04:19 | WPDOBADMIT ---
Obstetrics - Admit Note Admission Note: record reviewed. No pertinent additions to the history and/or any subsequent changes in the physical findings that are not consistent with the expected course of the were found. Additions to the history and/or subsequent changes in the physical findings follow. None.
--- NOTE | 2022-02-24 04:59 | LDADM ---
This patient, Mary Sosa, was admitted to Labor/Delivery/Recovery 108 on 02/24/22 at 03:22. Plans for labor, pain management and were discussed with patient. Patient/family oriented to hospital policies and general routines including ID bracelet, bed and alarms, visiting hours, pain management, procedures, bathroom and other care routines, personal items, smoking policy, room service/diet and guest tray routines, security routines, and visiting hours. Patient/Family are encouraged to report perceived risks to care and to ask questions if they do not understand what they are told or what they should do. See [facility] for further documentation.
--- NOTE | 2022-02-24 06:36 | PC.NURSE ---
Patient transferred to post room # via (482 ). Support person present. Oriented to unit, room, information board, rooming in, admission packet and security measures. Patient verbalizes understanding.
[2022-02-24] MEDS: DOCUSATE SODIUM 100 MG CAPSULE PO ×2 (06:58→16:30)
[2022-02-24] MEDS: MULTIVIT/MIN/PREN/FOL AC/IRON TABLET 1 TAB PO (06:58)
[2022-02-24] MEDS: IBUPROFEN 600 MG TABLET PO ×2 (06:58→16:29)
--- NOTE | 2022-02-24 08:41 | PC.NURSE ---
Medications Ibuprofen and that were administered at 06:58 02/24/2022 was given by Selena Rowe RN. Forgot to log out Selena Cartagena Rn off computer.
[2022-02-24 10:30] LABS: Rapid Plasma Reagin Non-Reactive (NonReactive)
--- NOTE | 2022-02-24 13:27 | PC.NURSE ---
[id number] Introductions were made, then consulted with patient to assess needs related to . Mother led the conversation with her?plans to feed?her infant and the?experience so far. Resources provided for inpatient and outpatient services using a resource guide and mom/baby guide. Mother voiced understanding of information and requested assistance. Encouraged understanding of the benefits of skin to skin (unwrapping and placing vertically on her chest), massage touch stimulating infant to wake, responsive feeding and how to watch for early feeding signs, frequency of feeding on demand about every 8-12 times in 24 hours (every 2-3 hours), milk production, duration of feeding, signs of adequate intake/output and how to record on the feeding sheet. Reviewed positioning and ear, shoulder, hip alignment, supporting the breast, asymmetrical latch (off-center), and leading with the chin with a big open side gape. Infant latched optimally to the right breast in football position. Education given to mother of how to visualize suck/swallow ratios and listen for drinking at the breast. Infant was able to maintain latch without discomfort to mother. Nipple care reviewed with optimal latch and good positioning. Resources used to facilitate learning were used with the tool and mom and baby guide. Mother voiced understanding of responsive feedings, stimulating with skin to skin, hand expressed colostrum, massage touch, talking to infant to encourage if it has been 2 -3 hours since the start of the last , to call if does not wake to latch or there is discomfort with . Reported to the primary RN.
[2022-02-25] MEDS: IBUPROFEN 600 MG TABLET PO ×2 (01:35→07:45)
[2022-02-25 05:17] LABS: Hematocrit 30.6 % (37.0-47.0); Hemoglobin 9.6 g/dL (12.0-15.0)
[2022-02-25 06:23] LABS: HIV 1/2 Ab P24 Ag Result Negative (Negative)
[2022-02-25 07:30] VITALS: BP 124/74; PULSE 73; RESP 18; TEMP 36.6; O2SAT 98
[2022-02-25] MEDS: DOCUSATE SODIUM 100 MG CAPSULE PO (07:44)
[2022-02-25] MEDS: POLYSACCHARIDE IRON COMPLEX 150 MG CAPSULE PO (07:44)
[2022-02-25] MEDS: MULTIVIT/MIN/PREN/FOL AC/IRON TABLET 1 TAB PO (07:45)
--- NOTE | 2022-02-25 09:43 | PM.OBDSVD ---
DS: Admitting Diagnosis Discharge Date 02/25/2022 Admitting Diagnosis OB - DS: Summary OB Procedures : None OB Procedures Intrapartum: Spontaneous Vag Delivery OB Procedures: : None Time Spent with Patient Time attestation: Total time spent providing and/or coordinating discharge services: DS: Data Data Completed and Pending Pending studies at discharge: Pending at discharge 02/24/22 03:45 Surgical [PTH] Routine Labs on day of discharge: Labs from last 24 hours 02/25/22 02/25/22 02/24/22 04:06 04:06 03:36 Hgb 9.6 L Hct 30.6 L RPR Non-reactive HIV 1&2 Ab/P24 Ag 4thGn Negative Discharge Plan Discharge Discharging Clinician: Juan Carrillo Patient Disposition: Home, Self-Care Activity: as tolerated Diet: as tolerated Patient Instructions: Antibiotic Form Stand Alone Forms: General Discharge Information Follow-up/Referrals: Juan Carrillo MD [Physician] - 3 Weeks Discharge Medications: New ibuprofen 600 mg Tablet 600 mg PO Q6H PRN (Reason: Cramping) Qty: 30 0RF Continued vit-iron fum-folic ac 65 mg iron- 1 mg tablet 2 tablet PO DAILY Date of admission: 02/24/22 03:22 Primary Care Provider: Collette Kwong Admitting Provider: Juan Carrillo Attending physician on admission: Juan Carrillo Condition: Stable
--- NOTE | 2022-02-25 09:52 | PC.NURSE ---
Patient viewed the discharge video Mother & Baby Care, The First Two Weeks . Patient was given the opportunity and encouraged to ask questions. Patient verbalized understanding of information shared and has been given the mother/baby guide for home reference.
[2022-02-25] MEDS: TETANUS,DIPHTHERIA,AC PERTUSSIS ADULT (0.5 ML) BOOSTRIX IM (10:17)
[2022-02-25] MEDS: ACETAMINOPHEN 325 MG TABLET 650 MG PO (11:27)
[2022-02-26 08:44] VITALS: BP 127/85; PULSE 76; RESP 16; TEMP 37
== END 2022-02-25 11:47 | disposition home or self-care (01) | DRG 560 ==
LOC: ANHLDR 04:49 → ANHOB2 06:50
PROVIDERS: Admitting Provider Obstetrics & Gynecology; PCP Nurse Practitioner Family; Visit Provider Obstetrics & Gynecology
DX: O62.3 Precipitate labor (principal); O70.1 Second degree perineal laceration during delivery; Z37.0 Single live birth; Z3A.39 39 weeks gestation of pregnancy
CPT/HCPCS: 36415; 85014; 85018; 85025; 86592; 86703; 86850; 86900; 86901; 88307; 90715; A9270; G0432; J2590; J3010

== ENCOUNTER 2023-04-25 11:09 | Outpatient (CLI) | payer OTHER, SELFPAY ==
[2023-04-25 20:04] LABS: Trichomonas Vag PCR NOT DETECTED (NOT DETECTE)
== END 2023-04-25 11:10 | disposition home or self-care (01) ==
PROVIDERS: PCP Nurse Practitioner Family; Visit Provider Nurse Practitioner Family
DX: R30.0 Dysuria (principal); Z12.4 Encounter for screening for malignant neoplasm of cervix; Z11.8 Encounter for screening for other infectious and parasitic diseases; Z32.01 Encounter for pregnancy test, result positive; N89.8 Other specified noninflammatory disorders of vagina
CPT/HCPCS: 36415; 84702; 87070; 87086; 87088; 87491; 87591; 87661; 88141; 88175; G0145